=== PATIENT | female | born 1960 | race Caucasian/White ===

== ENCOUNTER 2017-10-14 13:25 | Emergency (ER) | payer MEDICAID | END 2017-10-14 14:32 | disposition left against medical advice (07) | DX: Z53.21 Procedure and treatment not carried out due to patient leaving prior to being seen by health care provider (principal) ==

== ENCOUNTER 2017-11-24 16:09 | Emergency (ER) | payer MEDICAID ==
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
[2017-11-24 16:27] LABS: PLATELET COUNT 402 10^3/uL (150-400)
[2017-11-25 16:15] VITALS: BP 109/67
== END 2017-11-25 18:07 ==
LOC: EDBD → EDUNIT#
DX: F19.10 Other psychoactive substance abuse, uncomplicated (principal)
CPT/HCPCS: 80305; G0480

== ENCOUNTER 2017-12-24 13:56 | Emergency (ER) | payer MEDICAID ==
[~2017-12-24 13:56] MED LIST: DOXYCYCLINE HYCLATE 100 MG CAP/TAB PO SCH
[2017-12-24 14:27] VITALS: BP 119/88
--- NOTE | 2017-12-24 15:11 | EDPHY ---
H & P Time Seen by Provider: 12/24/17 14:53 HPI/ROS: CHIEF COMPLAINT: "I have a boil on my face" HISTORY OF PRESENT ILLNESS: 57-year-old female history of hepatitis C in the ER complaining of 3 days of a cheek carbuncle, tender, nondraining. No fever no chills no nausea no vomiting. Up-to-date tetanus PHYSICAL EXAM (Prior to examination, patient consented to physical exam, hands were washed and my usual and customary physical exam procedures followed) 1) GENERAL: Well-developed, well-nourished, alert and oriented. Sleeping easily woken. 2) HEAD: Normocephalic 3) HEENT: sclera anicteric 4) LUNGS: Breathing comfortably. 5) SKIN: Right cheek single carbuncle, tender, erythematous, indurated, fluctuant. Nasolabial folds are symmetrical. No facial asymmetry. No submental or submandibular tenderness, no adenopathy. Floor of mouth soft no induration no signs of Patrick's angina. Smoking Status: Current every day smoker Constitutional: Initial Vital Signs Temperature (C) 36.7 C 12/24/17 14:25 Heart Rate 78 12/24/17 14:25 Respiratory Rate 16 12/24/17 14:25 Blood Pressure 119/88 H 12/24/17 14:25 O2 Sat (%) 94 12/24/17 14:25 O2 Delivery Mode Room Air Allergies/Adverse Reactions: Penicillins Allergy (Verified 12/24/17 14:23) Home Medications: Medication Instructions Recorded Cephalexin [Keflex] 500 mg PO TID 10 Days cap 12/24/17 Prilosec 12/24/17 Wellbutrin Sr 12/24/17 MDM/Departure - MDM Procedures: Procedure: Abscess drainage. The patient's abscess was located on the right cheek. I obtained verbal consent from the patient to drain the abscess who was informed about the possibility of bleeding and pain. The abscess was incised with a scalpel and a mild amount of purulent drainage was expressed. I irrigated the wound. The patient tolerated the procedure well. The procedure was performed by myself. ED Course/Re-evaluation: Single carbuncle which has been unroofed in the ER and drained. Started on prophylactic Keflex. No known history of MRSA. No history of recurrent skin infections. Doubt deep space infection. Doubt abscess. I do not think that imaging studies are indicated. I saw this patient independently based on established practice protocols. Care of patient under supervision of secondary supervising physician Dr Tavon Bergeron. - Depart Disposition: Home, Routine, Self-Care Clinical Impression: Carbuncle right cheek Condition: Good Instructions: Furunculosis and Carbunculosis (ED) Additional Instructions: Return to the ER if you develop redness, swelling, discharge, warmth to the wound, or any other symptoms that concern you. Prescriptions: Cephalexin [Keflex] 500 mg PO TID 10 Days cap Referrals: [facility],. [Clinic] - 2-3 days, call for appt.
--- NOTE | 2017-12-24 16:08 | ASDISCHSUM ---
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 Pt provided antibiotics via [facility] since she is homeless and states she is unable to get it filled until Monday when [facility] is open again. Pt states she will follow-up w/PC this week. Pt asked for a bus pass but when this CM informed her that there were no bus passes available, pt scoffed and abruptly sat up in bed and started yelling "well then f*#k, what am I supposed to do?! You guys got any change then? Because I got to get downtown and that is a long ways." This CM said that since patient is ambulatory, the weather outside is warm and dry, and the ED is not required to provide transportation assistance, she was recommended to walk or call for a ride. Pt became upset and kept yelling profanities as she left the ED. CM available for further assistance if needed. 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
== END 2017-12-24 15:40 | disposition home or self-care (01) ==
PROC: 0H91XZZ Drainage of Face Skin, External Approach (ICD-10-PCS; principal; 2017-12-24)
DX: L02.03 Carbuncle of face (principal); F17.200 Nicotine dependence, unspecified, uncomplicated

== ENCOUNTER 2017-12-31 11:54 | Emergency (ER) | payer MEDICAID ==
--- NOTE | 2017-12-31 12:18 | EDPHY ---
H & P Stated Complaint: pt concerned for "spider bite" on face and "reaction to the sun" Time Seen by Provider: 12/31/17 12:08 - Medical/Surgical History Hx Asthma: No Hx Chronic Respiratory Disease: Yes Hx Diabetes: No Hx Cardiac Disease: No Hx Renal Disease: No Hx Cirrhosis: No Hx Alcoholism: No Hx HIV/AIDS: No Hx Splenectomy or Spleen Trauma: No Other PMH: stress and anxiety disorder. pt poor historian - Social History Smoking Status: Current every day smoker Constitutional: Initial Vital Signs Temperature (C) 37.9 C 12/31/17 12:00 Heart Rate 89 12/31/17 12:00 Respiratory Rate 20 12/31/17 12:00 Blood Pressure 145/78 H 12/31/17 12:00 O2 Sat (%) 97 12/31/17 12:00 O2 Delivery Mode Room Air Allergies/Adverse Reactions: Penicillins Allergy (Verified 12/24/17 14:23) Home Medications: Medication Instructions Recorded Doxycycline Hyclate 100 mg PO BID #14 capsule 12/24/17 Prilosec 12/24/17 Wellbutrin Sr 12/24/17 Naphazoline HCl/Phenir Mal 1 drops OP Q6 #1 bottle 12/31/17 [Visine-A] Medical Decision Making ED Course/Re-evaluation: CHIEF COMPLAINT: Red eyes and facial pain HISTORY OF PRESENT ILLNESS: The patient is a 57 y/o female complaining of red eyes and facial pain. She is unable to tell me how long these symptoms have occurred for. She is currently using eye drop for people who wear contacts, but she denies wearing contacts. Denies foreign object or injury to her eyes. Denies fever, headache, numbness, paresthesias, chest pain, shortness of breath, abdominal pain. REVIEW OF SYSTEMS: A 10 point review of systems was performed and is negative with the exception of the elements mentioned in the history of present illness. PHYSICAL EXAM: HR, BP, O2 Sat, RR. Temp noted General Appearance: Alert, well hydrated, appropriate, and non-toxic appearing. Head: Atraumatic without scalp tenderness or obvious injury Eyes: Bilateral conjunctival erythema without discharge. Pupils equal, round, reactive to light and accommodation, EOMI, no trauma, no injection. Ears: Clear bilaterally, no perforation, normal landmarks Nose: Atraumatic, no rhinorrhea, clear. Throat: Mucus membranes moist. Neck: Supple, nontender, no lymphadenopathy. Respiratory: No retractions, no distress, no wheezes, and no accessory muscle use. Lungs are clear to auscultation bilaterally. Cardiovascular: Regular rate and rhythm, no murmurs, rubs, or gallops. Good capillary refill all extremities. Gastrointestinal: Abdomen is soft, nontender, non-distended, no masses, no rebound, no guarding, no peritoneal signs. Musculoskeletal: Normal active ROM of all extremities, atraumatic. Neurological: Alert, appropriate, and interactive. Nonfocal neuro. Skin: No rashes, good turgor, no nodules on palpation. Past medical history: Stress, anxiety Past surgical history: Denies Family history: Denies Social history: Single, homeless, not employed DIFFERENTIAL DIAGNOSIS: The differential diagnosis for the patient's eye pain included but was not limited to allergic conjunctivitis, bacterial syndrome, viral syndrome, and sepsis. MEDICAL DECISION MAKING: The patient is a 57 y/o female presenting with red eyes and facial pain. On exam she has bilateral conjunctival erythema without discharge, which I presume is allergic conjunctivitis. She does not need imaging or laboratory studies at this time. 1323: Reassessed patient and discussed Visine-A prescription. Return precautions provided; patient is comfortable with this plan. Departure - Departure Disposition: Home, Routine, Self-Care Clinical Impression: Allergic conjunctivitis Qualifiers: Laterality: bilateral Qualified Code(s): H10.13 - Acute atopic conjunctivitis, bilateral Condition: Good Instructions: Naphazoline/Pheniramine (Into the eye), Conjunctivitis (ED) Additional Instructions: 1. Use Visine-A as prescribed. 2. Follow-up with your primary doctor within 72 hours. 3. Return to the Emergency Department for fever, chest pain, shortness of breath , increasing pain or other worsening of condition. Referrals: [facility],. [Clinic] - As per Instructions Prescriptions: Naphazoline HCl/Phenir Mal [Visine-A] 1 drops OP Q6 #1 bottle Report Scribed for: Charan Mendenhall Report Scribed by: Basia Guzmán Date of Report: 12/31/17 Time of Report: 12:17
[2017-12-31 13:21] VITALS: BP 124/78
== END 2017-12-31 13:22 | disposition home or self-care (01) ==
DX: H10.13 Acute atopic conjunctivitis, bilateral (principal); F17.200 Nicotine dependence, unspecified, uncomplicated

== ENCOUNTER 2018-01-01 04:23 | Emergency (ER) | payer MEDICAID ==
--- NOTE | 2018-01-01 04:44 | EDPHY ---
H & P Time Seen by Provider: 01/01/18 04:33 HPI/ROS: Chief Complaint: Neck pain, back pain HPI: 57-year-old homeless woman with a history of chronic neck and back pain for which she takes gabapentin. She is being brought in by EMS and police because if had 2 calls in her tonight after she was found outside of fast food establishment. Patient was seen here yesterday with concerns about conjunctivitis. She says she has been on mental health medications in the past was not currently taking them. Does not have a diagnosis of mental health disorder. She denies being suicidal or homicidal. She says she is currently homeless. She is mary for safety. She denies alcohol or drug use. She is currently complaining of her chronic neck and back pain. No new numbness or weakness. No new exacerbations. This is unchanged from prior. She is currently awake alert and oriented. ROS: 10 point Review of Systems is negative except as noted in the HPI. 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 Family History: non-contributory Physical Exam: Gen: Awake, Alert, No Distress HEENT: Face: She has a healing carbuncle on her right cheek, no fluctuance or pointing Nose: no rhinorrhea Eyes: PERRLA, EOMI Mouth: Moist mucosa, a dentate Neck: Supple, no JVD Chest: nontender, lungs clear to auscultation Heart: S1, S2 normal, no murmur Abd: Soft, non-tender, no guarding Back: no CVA tenderness, no midline tenderness Ext: no edema, non-tender Skin: no rash Neuro: CN II-XII intact, Sensation grossly intact, Strength 5/5 in bilateral upper and lower extremities - Medical/Surgical History Hx Asthma: No Hx Chronic Respiratory Disease: Yes Hx Diabetes: No Hx Cardiac Disease: No Hx Renal Disease: No Hx Cirrhosis: No Hx Alcoholism: No Hx HIV/AIDS: No Hx Splenectomy or Spleen Trauma: No Other PMH: stress and anxiety disorder. pt poor historian - Social History Smoking Status: Current every day smoker Constitutional: Initial Vital Signs Temperature (C) 37 C 01/01/18 04:46 Heart Rate 83 01/01/18 04:46 Respiratory Rate 18 01/01/18 04:46 Blood Pressure 164/82 H 01/01/18 04:46 O2 Sat (%) 94 01/01/18 04:46 O2 Delivery Mode Room Air Allergies/Adverse Reactions: Penicillins Allergy (Verified 12/24/17 14:23) Home Medications: Medication Instructions Recorded Doxycycline Hyclate 100 mg PO BID #14 capsule 12/24/17 Prilosec 12/24/17 Wellbutrin Sr 12/24/17 Medical Decision Making ED Course/Re-evaluation: 57-year-old woman being brought in for evaluation by EMS and police. She is currently homeless. She is without complaint. She is at her baseline. She does not meet any criteria for a mental health hold at this time. She is awake alert and oriented. She is mary for safety. Plan will be for discharge with the [facility], follow up for any concerns. Departure - Departure Disposition: Home, Routine, Self-Care Clinical Impression: Back pain Condition: Good Instructions: Back Pain (ED) Additional Instructions: Follow up with the [facility] in 2-3 days for further evaluation. Referrals: NONE *PRIMARY CARE P,. [Primary Care Provider] - As per Instructions
[2018-01-01 06:16] VITALS: BP 132/84
== END 2018-01-01 06:09 | disposition home or self-care (01) ==
LOC: EDUNIT#
DX: M54.9 Dorsalgia, unspecified (principal); F17.200 Nicotine dependence, unspecified, uncomplicated